=== PATIENT | male | born 1965 | race Caucasian/White ===

== ENCOUNTER 2017-09-20 14:53 | Emergency (ER) | payer BC ==
[~2017-09-20] VITALS: Ht 185.4 cm; Wt 122.9 kg
[~2017-09-20 14:53] MED LIST: BACTRIM DS TAB1 EACH PO
[2017-09-20] MEDS ORDERED: HYDROCHLOROTH12.5 M1 PO (15:01)
[2017-09-20] MEDS ORDERED: LISINOPRIL-HCT1 EACH PO (15:15)
[2017-09-20] MEDS ORDERED: CLARITIN10 MG PO (15:16)
[2017-09-20] MEDS ORDERED: FLONASE 0.05%50 MCG NASAL (15:16)
[2017-09-20] MEDS ORDERED: COLACE CLEAR50 MG PO (15:36)
[2017-09-20 15:49] VITALS: BP 138/87
== END 2017-09-20 15:50 | disposition home or self-care (01) ==
LOC: M.ERS 14:53
DX: I10 Essential (primary) hypertension (principal); H65.01 Acute serous otitis media, right ear; H61.891 Other specified disorders of right external ear

== ENCOUNTER 2017-11-23 19:54 | Emergency (ER) | payer BC ==
[~2017-11-23] VITALS: Ht 185.4 cm; Wt 117.9 kg
[~2017-11-23 19:54] MED LIST changes: +CLARITIN10 MG PO; +COLACE CLEAR50 MG PO; +FLONASE 0.05%50 MCG NASAL; +HYDROCHLOROTH12.5 M1 PO; +LISINOPRIL-HCT1 EACH PO
[2017-11-23 20:28] LABS: ABSOLUTE BASOPHILS 0.1 thou/uL (0.0-0.2); ABSOLUTE EOSINOPHILS 0.3 thou/uL (0.0-0.7); ABSOLUTE LYMPHOCYTES 1.6 thou/uL (0.8-5.3); ABSOLUTE MONOCYTES 0.6 thou/uL (0.0-1.2); ABSOLUTE NEUTROPHILS 12.8 thou/uL (1.6-8.1); BASOPHILS 0.5 %; EOSINOPHILS 1.9 %; HEMATOCRIT 46.8 % (42.0-52.0); HEMOGLOBIN 15.7 gm/dL (14.0-18.0); LYMPHOCYTES 10.4 %; MCH 29.7 pg (26.0-34.0); MCHC 33.6 g/dL (28.0-37.0); MCV 88.3 fL (80.0-100.0); MONOCYTES 3.7 %; MPV 6.2 fl. (7.2-11.1); NUCLEATED RBCS 0 /100WBC; PLATELET COUNT* 422 thou/uL (150-400); POLYS 83.5 %; RBC 5.31 mil/uL (4.50-6.00); RDW-CV 13.3 % (10.5-14.5); WBC 15.3 thou/uL (4.0-11.0)
[2017-11-23 20:45] LABS: CREATININE 1.2 mg/dL (0.6-1.3); POTASSIUM 4.4 mmol/L (3.5-5.1)
[2017-11-23 20:49] LABS: TOTAL BILIRUBIN 0.5 mg/dL (<0.1-1.0); TOTAL PROTEIN 7.6 g/dL (6.4-8.2)
[2017-11-23] MEDS ORDERED: AMOXICILLIN875 MG PO (21:12)
[2017-11-23 21:46] VITALS: BP 130/79
== END 2017-11-23 21:50 | disposition home or self-care (01) ==
LOC: M.ERS 19:54
PROVIDERS: Personal Emergency Response Attendant
DX: R11.2 Nausea with vomiting, unspecified (principal); T36.0X5A Adverse effect of penicillins, initial encounter; I10 Essential (primary) hypertension; Y92.89 Other specified places as the place of occurrence of the external cause